=== PATIENT | female | born 1955 | race Caucasian/White ===

== ENCOUNTER 2018-06-05 09:56 | Inpatient (IN) | payer OTHER, SELFPAY ==
[2018-05-20 12:50] VITALS: BMI 29.9
[2018-06-05] VITALS (20 sets, daily range): BP systolic 86–119; BP diastolic 40–75; PULSE 64–90; RESP 10–16; TEMP 35.8–36.9; O2SAT 94–100; BMI 29.9
--- NOTE | 2018-06-05 06:00 | DI.RAD.S_ITS ---
PROCEDURE: XR HIP W PEL IF DONE RT 4V INDICATIONS: Postop right anterior total hip arthroplasty TECHNIQUE: 2 view(s) of the hip acquired. COMPARISON: [facility], HIPS BILATERAL, 06/18/2014, 13:33. FINDINGS: Intraoperative fluoroscopic images obtained. Bones: Patient is undergoing right hip arthroplasty, with hardware components in expected positions. The hip joint appears congruent. The visualized bony structures appear intact left hip arthroplasty components are also in place.. Soft tissues: Overlying postoperative changes are noted. No suspicious soft tissue densities. IMPRESSION: Expected appearance of hip arthroplasty components. Dictated by: Prachi Gary M.D. on 06/05/2018 at 16:01 Approved by: Prachi Gary M.D. on 06/05/2018 at 16:03
[2018-06-05] MEDS: ACETAMINOPHEN 325 MG TABLET 975 MG PO ×2 (11:01→20:43)
[2018-06-05] MEDS: CELECOXIB 200 MG CAPSULE PO (11:01)
[2018-06-05] MEDS: PREGABALIN 75 MG CAPSULE PO (11:03)
[2018-06-05] MEDS: LACTATED RINGERS 1,000 ML 42 ML IV ×2 (11:09→13:25)
[2018-06-05] MEDS: VANCOMYCIN 1,000 MG/200 ML FROZ.PIGGY 200 MG IV ×2 (11:17→23:20)
[2018-06-05] MEDS: CLINDAMYCIN 900 MG/50 ML PIGGYBACK 50 MG IV (12:23)
[2018-06-05] MEDS: TRANEXAMIC ACID 1,000 MG VIAL 1000 MG INJ ×2 (12:35→14:40)
--- NOTE | 2018-06-05 12:51 | SUR.OPER ---
Head on pillow. Supine on [facility] fracture table with bilateral legs secured in boots and in traction. Right arm across chest, secured with sheet and padded with foam, left arm secured on padded armboard, head on foam.
[2018-06-05] MEDS: BUPIVACAINE 0.25% W/ EPI 30 ML VIAL 60 ML INJ (13:31)
[2018-06-05] MEDS: BUPIVACAINE LIPOSOME 266 MG/20 ML VIAL INJ (13:31)
[2018-06-05] MEDS: POVIDONE-IODINE 15 ML, SODIUM CHLORIDE 0.9% 250 ML TOP (13:35)
[2018-06-05] MEDS: LIDOCAINE 1% W/EPI INJ 4 ML INJ (13:38)
--- NOTE | 2018-06-05 16:44 | PM.PREOP ---
Pre-operative Note Interval Note History & Physical reviewed/Exam performed by Physician: Yes Changes to H&P: No
--- NOTE | 2018-06-05 16:46 | P.OP_ITS ---
Operative Date/Time/Diagnoses Date of procedure: 06/05/18 Time of procedure: 16:44 Pre-op diagnosis: right hip osteoarthritis Post-op diagnosis: same Procedure & Clinicians Procedure: Right total hip arthroplasty anterior Same procedure as scheduled: Yes Indications: The patient has had progressively worsening right hip pain with radiographic changes consistent with arthritis. Non-operative management has failed and the patient has requested total hip replacement. The risks, benefits and alternatives to surgery were discussed with the patient prior to proceeding. Risks discussed included, but were not limited to, failure to relieve pain, leg length discrepancy, dislocation, stiffness, infection, nerve damage, deep venous thrombosis, pulmonary embolism, stroke, coma, heart attack, permanent paralysis and , as well as the potential need for eventual revision of the prosthetic. Surgeon: Silvina Root Food And Beverage Associate: Ricky Bucio Anesthesia Type: General and Spinal Operative Notes Findings: Severe right hip arthritis, tight hip, good stability Closure Type: primary Specimen(s): none sent Prosthetic devices, grafts, tissues, transplants, or devices: Root and Nephew R3 52, 36 x 52, size 4 standard offset anthology, 36+ 0 Applied: implant(s) Estimated Blood Loss (mL): 250 Blood products transfused: none Procedure in detail: The patient was brought to the operating room. Patient was carefully positioned in the supine position. Time-out was performed and antibiotics were given. Anesthesia was induced. She was positioned in the on the HANA table in order to allow hyperextension of the hip. the right lower extremities were prepped and draped in a standard sterile fashion. An anterior right hip incision was made 1 fingerbreadth lateral to the anterior superior iliac spine and extended distally towards the greater trochanter. Dissection was carried out through skin and subcutaneous tissues. The skin and subcutaneous tissues were carefully injected with Lidocaine with epi. Superficial hemostasis was achieved. The fascia over the tensor fascia jimena was defined and incised with a knife. Two Allis clamps were used to grasp the fascia. Tensor fascia jimena was retracted laterally. A gelpi retractor was placed. Dissection was carried out down along the neck. The circumflex vessels were carefully identified and cauterized with the Aqua Mantis. There was good visualization of the femoral neck. A Cobra was placed superior to the neck and the gluteus fibers were carefully stripped from that superior aspect of the capsule. A 2nd retractor was placed along the inferior aspect of the neck. The rectus insertion along the capsule was partially released. A 3rd retractor that was then gently placed over the rim of the acetabulum under the rectus. Capsule was carefully incised and released from the intertrochanteric line circumferentially superior to the mid sagittal line and inferiorly to the mid sagittal line until the lesser trochanter was palpable. She had a redundant and extremely tight capsule. A tag stitch was placed both in the superior and inferior limb of the capsular insertion. Along the acetabulum capsule was also released up to the mid sagittal 12:00 position. A portion of the labrum was resected. A saw was used to perform an osteotomy at the level of the intertrochanteric line and the junction of the superior femoral neck leaving approximately 1 finger breath of residual inferior neck above the lesser trochanter. A 2nd cut was made along the femoral neck at the base of the head and a napkin ring of neck was removed. Corkscrew was placed in the femoral head and the head was removed without difficulty. Retractors were then repositioned around the acetabulum. Residual labrum was resected and additional osteophytes were removed. A reamer that was 4 mm below the templated size was placed by hand in the acetabulum and it was reamed to centralize the acetabulum. It was then reamed up to 2 under the templated size and fluoroscopy was brought in to confirm the position of the reaming and depth of reaming. I reamed 1 under the anticipated size and touched the rim with line to line reaming. A trial cup was placed and noted that it was appropriately sized and fluoroscopy confirmed position and depth. The component was open and inserted without difficulty fluoroscopic imaging was used to confirm that the cup had been adequately seated and was well positioned. Neutral poly liner was placed after carefully reviewing the position of the cup and noting that it appeared to have acceptable anteversion and position with good coverage. The cup was tested and noted to be stable. Attention was then directed to the femur. The femur was gently hyperextended additional capsular release was performed as needed in order to allow adequate visualization of the proximal femur with elevation of the femur. her hip was quite tight. I specifically resected the capsule off of the femur posteriorly to the bald spot along the trochanter and specifically released that region as well as checking to make sure that inferiorly I had released to the lesser trochanter. A bone hook was used to gently mobilize the proximal femur. Patient was placed in a hyperextended slightly abducted position with maximum external rotation. the table hook was placed around the proximal femur and the femur was gently elevated. Box osteotome was used to check for any residual neck as well as sclerotic bone along the trochanter. [place] pepper was placed in the femur. Additional broaching was performed. Canal finder was used to deter mine the alignment of the canal and position. Size 1 broach was placed. The canal was then appropriately broached up to the templated size as long as there was adequate stability of the broach and serial advancement of the broach without excessive impingement. Specific attention was directed at avoiding varus attempting to direct the distal aspect of the broach more anteriorly and avoiding excessive anteversion. Trial reduction showed acceptable range of motion, good stability, no posterior impingement, adventist of leg length and appropriate lateral shuck. Patient was stable in external rotation to about 60? of hyper extension with external rotation of about 90?. I also flexed the hip and checked that there was no impingement anteriorly and there was good stability with flexion, abduction and internal rotation. Marcaine and Exparel were injected along the anterior capsule inferiorly and circumferentially around the capsule. the hip was dislocated and the broach was removed. I readjusted the retractors and then we placed the prosthesis. The stem was placed without difficulty. Repeat trial reduction and x-ray showed acceptable overall position, length, and no evidence of the femoral fracture. Final head was placed. Wound was meticulously irrigated with normal saline. The hip was reduced and additional Exparel and Marcaine were injected. The capsule was closed with interrupted nonabsorbable sutures. The fascia of the tensor was closed with interrupted and running Vicryl. No drain was placed. Any tensor fascia jimena muscle that appeared to be contused or injured which was a minimal amount was carefully resected. Capsule around the tensor was injected with Exparel and Marcaine. The skin was closed with barbed stitches for the subcutaneous tissue and skin. We also used surgical glue. The wound was dressed sterilely. Brief Betadine soak was also used and was meticulously irrigated with normal saline. Patient was transferred to recovery room in satisfactory condition. Complications: none Condition: stable Disposition: Acute Care Plan for aftercare: The patient will be maintained on a standard total hip replacement protocol with weight bearing as tolerated and anterior hip precautions. The patient will receive Aspirin and sequential compression devices for DVT prophylaxis. The patient will be discharged home when safe for the home environment.
[2018-06-05] MEDS: fentaNYL 100 MCG/2 ML INJ 50 MCG IV (16:50)
--- NOTE | 2018-06-05 17:00 | DI.RAD.S_ITS ---
PROCEDURE: XR HIP W PEL IF DONE RT 2V INDICATIONS: POST OP RIGHT ANTERIOR HIP TECHNIQUE: AP pelvis and lateral view of the right hip acquired. COMPARISON: [facility], CR, XR HIP W PEL IF DONE RT 4V, 06/05/2018, 12:39. [facility], MR, HIP WITHOUT CONTRAST, 05/02/2017, 11:59. FINDINGS: Bones: Patient is status post right hip arthroplasty, with hardware components in expected positions. The hip joint appears congruent. The visualized bony structures appear intact. The previously placed left hip arthroplasty hardware is noted. Soft tissues: Overlying postoperative changes are noted. No suspicious soft tissue densities. IMPRESSION: Normal postoperative examination. Dictated by: Hubert Adair M.D. on 06/05/2018 at 16:00 Approved by: Hubert Adair M.D. on 06/05/2018 at 16:01
--- NOTE | 2018-06-05 17:22 | SUR.PHASEI ---
Pain better, and
[2018-06-05] MEDS: LACTATED RINGERS 1,000 ML 125 ML IV (19:00)
--- NOTE | 2018-06-05 19:12 | PC.NURSE ---
Evening Shift/Admit Note- Patient arrived to room from PACU at 1735 via bed. Patient alert and oriented and able to make needs known to staff. Patient pleasent, calm, and cooperative with care. Admit questions completed, home medications reviewed, and physical assessment done. aquacell dressing to right hip C/D/I. Ice pack placed to right hip. Patient oriented to bed and bed controls, room, lights, menu, phone, and call soria/tv remote. Safety measures in place. Patient agrees to call for assistance. Bed alarm activated. Call soria and phone within reach. Will continue to monitor.
[2018-06-05] MEDS: OXYCODONE IR 5 MG TABLET PO (19:59)
[2018-06-05] MEDS: DOCUSATE 100 MG CAPSULE PO (20:43)
[2018-06-05] MEDS: ASPIRIN EC 81 MG TABLET PO (20:43)
[2018-06-05] MEDS: TIZANIDINE 4 MG TABLET 2 MG PO (22:32)
[2018-06-05] MEDS: LORazepam 1 MG TABLET PO (22:32)
[2018-06-06] VITALS (7 sets, daily range): BP systolic 96–125; BP diastolic 57–67; PULSE 68–81; RESP 16–18; TEMP 36.1–37.2; O2SAT 96–100
[2018-06-06] MEDS: OXYCODONE IR 5 MG TABLET PO (00:37)
[2018-06-06] MEDS: HYDROMORPHONE 0.5 MG INJ IV (02:37)
[2018-06-06 06:17] LABS: Hematocrit 32.6 % (36-46); Hemoglobin 10.9 g/dL (12.0-16.0)
[2018-06-06] MEDS: OXYCODONE/ACETAMINOPHEN 5/325 TABLET 2 TAB PO (06:18)
[2018-06-06] MEDS: LEVOTHYROXINE 50 MCG TABLET PO (06:21)
[2018-06-06] MEDS: DOCUSATE 100 MG CAPSULE PO ×2 (09:57→21:34)
[2018-06-06] MEDS: POLYETHYLENE GLYCOL 3350 17 GM POWD.PACK PO (09:57)
[2018-06-06] MEDS: LORATADINE 10 MG TABLET PO (09:57)
[2018-06-06] MEDS: DULOXETINE 30 MG CAPSULE 60 MG PO (09:57)
[2018-06-06] MEDS: ACETAMINOPHEN 325 MG TABLET 975 MG PO ×3 (09:58→21:35)
[2018-06-06] MEDS: ASPIRIN EC 81 MG TABLET PO ×2 (09:59→21:36)
[2018-06-06] MEDS: FLUTICASONE 120 SPRAY/16 GM SPRAY.SUSP NASAL (09:59)
[2018-06-06] MEDS: OXYCODONE IR 10 MG TABLET PO ×5 (10:03→22:55)
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
--- NOTE | 2018-06-06 14:20 | PM.PNPO.1 ---
Subjective Date Patient Seen: 06/06/18 Time Patient Seen: 07:30 Interval history: Patient is a 62 year old female who is POD #1 s/p right total hip arthroplasty. She has had difficulty with managing her pain overnight with her pain levels staying at about a 7/10. She was given oxycodone 5mg and Percocoet 5/325mg overnight which did not provide significant relief. She has been up and out of bed to the bathroom but has not evaluated by PT as of yet. She does note an area of decreased sensation lateral to the incision site. She denies any urinary issues. No nausea, vomiting, chest pain, shortness of breath or calf pain. Exam Vital Signs (past 8 hours): - 06/06/18 07:14 06/06/18 11:17 Temperature 97.2 F L 98.9 F Pulse Rate 69 68 Respiratory Rate 16 18 Blood Pressure 99/62 125/66 Pulse Oximetry 99 99 Oxygen Delivery Method CPAP Oxygen Flow Rate 0 Narrative Exam Narrative: Pleasant 62 year old female resting comfortably in bed in no apparent distress. Extrem Other: Aquacel dressing in place over right hip is clean, dry, and intact. Area of decreased sensation lateral to the incision that extends to midthigh, otherwise sensation intact. Able to dorisflex and plantar flex the foot. 2+ DP pulse. Objective Labs Result Diagrams: 06/06/18 05:57 Labs: Laboratory Results - last 24 hr 06/06/18 05:57 Hgb 10.9 L Hct 32.6 L Assessment & Plan Post-op Postoperative Procedures Operation Date: 06/05/18 12:00 Actual Procedures Side Surgeon p Total Hip Arthroplasty/Anterior Approach Right Silvina Root MD Postoperative day: 1 Postoperative status: doing well Postoperative plan narrative: Continue to ambulate as tolerated and mobilize with PT. Pain regimen changed to oxycodone 10mg for moderate pain and 15mg for severe pain[place] Due to her current mobility and her pain control will likely need another night inpatient.
--- NOTE | 2018-06-06 14:24 | PT.IPTN ---
Current Diagnoses Unilateral primary osteoarthritis, right hip (06/05/18) Surgery Performed Operation Date: 06/05/18 12:00 Actual Procedures p Total Hip Arthroplasty/Anterior Approach(Right) - Silvina Root MD Physical Therapy Treatment Note M2 PT-IP Current Condition Start: 06/06/18 10:07 Freq: NEEDED Status: Active Protocol: Document 06/06/18 11:47 DLM (Rec: 06/06/18 12:07 DLM [id number]) Physical Therapy Current Condition Current Condition Evaluation Date 06/06/18 Treatment Diagnosis right DELROY, anterior approach, gait impairment Onset Date 06/05/18 Precautions Anterior Hip Precautions No Hip Extension No Hip External Rotation Weight Bearing Status Weight Bearing Status Weight Bear as Tolerated M3 PT-IP Subjective Start: 06/06/18 10:07 Freq: NEEDED Status: Active Protocol: Document 06/06/18 14:24 DLM (Rec: 06/06/18 14:44 DLM [id number]) Subjective Physical Therapy Visit Type Type Treatment Note Visit Start Time 14:57 Visit Stop Time 14:24 Total Visit Minutes 27 Number of INVESTIGATION MANAGER Visits 0 Physical Therapy Visit Comments Patient Comments Her daughter is driving into town to help her at discharge Therapy Pain Assessment Pain When Pain Assessed After Treatment Pain Present Pain Present Pain Reported Location Right Anterior Hip Intensity 5 Scale Used Numeric (1 - 10) Description Aching Pain Behaviors Guarding Pain Management Techniques Apply Cold Re-positioning Timing of Activity with Medications M4 PT-IP Mobility and Gait Start: 06/06/18 10:07 Freq: NEEDED Status: Active Protocol: Document 06/06/18 14:24 DLM (Rec: 06/06/18 14:44 DL [id number]) PT-Bed Mobility Assessment Supine to Sit Supine to Sit Independent Sit to Supine Sit to Supine Standby Assistance Scooting Scooting to Edge of Bed Independent PT-Transfer Assessment Sit to and From Stand Sit to and from Stand Standby Assistance Use of Upper Extremities Equipment Transfer Assistive Device Gait Belt Front Wheeled Walker Transfers Transfer Destination Bed Transfer Technique Stand Step Pivot Transfer Ability Level of Assist Standby Assistance Use of Upper Extremities Gait Assessment Gait Gait Assistance Required: Standby Assistance Distance (Feet) 150 Able to Maintain Weight Bearing Status Yes During Gait Assistive Devices Assistive Device Gait Belt Front Wheeled Walker Gait Deviations General Gait Pattern Antalgic Decreased Stride Length Factors Limiting Gait Function Factors Limiting Gait Function Decreased Activity Tolerance Decreased Strength Pain Comments Gait Comments Verbal cues for safe use of FWW PT-Balance Assessment Sitting Balance and Reactions Static Sitting Balance Ability Normal Dynamic Sitting Balance Ability Normal Standing Balance and Reactions Static Standing Balance Ability Good Dynamic Standing Balance Ability Good Device Used FWW M5 PT-IP Objective Assessments Start: 06/06/18 10:07 Freq: NEEDED Status: Active Protocol: Document 06/06/18 14:24 DLM (Rec: 06/06/18 14:44 DL [id number]) Orientation Orientation/Cognition Level of Alertness Alert Orientation Name Age Birthday Month Date Year Day of Week Place Situation Language Function Ability No Deficits Noted Safety Awareness Understands Safety Issues Memory Description No Deficits Noted M6 PT-IP Treatment Start: 06/06/18 10:07 Freq: NEEDED Status: Active Protocol: Document 06/06/18 14:24 DLM (Rec: 06/06/18 14:44 DLM [id number]) Physical Therapy Treatment Exercises Exercises Ankle Pumps Gluteal Sets Quad Sets Heel Slides Education Education Provided Precautions Weight Bearing Status Safety Equipment Issued Equipment Type and Company she has her FWW from home in her room M7 PT-IP Assessment and Plan Start: 06/06/18 10:07 Freq: NEEDED Status: Active Protocol: Document 06/06/18 14:24 DLM (Rec: 06/06/18 14:44 DL [id number]) PT Summary Assessment and Plan Summary Impairments Pain ROM Strength Balance Bed Mobility Transfers Gait Activity Tolerance Progress Towards Goals Progressing Toward Goals Assessment Summary Patient tolerated gait well in the wright with fWW. Pt has been up to recliner and toilet today. She is progressing well. She will look at [facility] to get organized for possible discharge tomorrow. Anticipate she will be safe for discharge home tomorrow. Goals Bed Mobility Goal Independent Transfer Goal Independent Front Wheeled Walker Gait Goal Independent Front Wheel Walker Gait Distance 200 feet Other Goals Up and down one step with fWW and SBA Days to Meet Goals 2 Frequency of Treatment Frequency Of Treatment Twice a Day Treatment Plan Physical Therapy Treatment Plan Bed Mobility Training Transfer Training Gait Training Therapeutic Exercise Balance Retraining Discharge Planning Hot or Cold Pack Recommendations To Nursing Amount of Assist Needed Standby Assistance Discharge Recommendations PT Discharge Recommendations Home with Assistance Outpatient PT
--- NOTE | 2018-06-06 14:56 | PC.NURSE ---
SHIFT SUMMARY PATIENT HAD A GREAT SHIFT. PO OXYCODONE CONTROLLING PAIN WELL. GOOD MOBILITY AND AMBULATION IN HALLS W/ PHYSICAL THERAPY. PAIN COMES DOWN TO 3/10 AFTER MEDICATION. CMS INTACT, AQUACEL CDI. EATING, DRINKING, URINATING WELL. MIRALAX AND STOOL SOFTENER GIVEN THIS AM. USES CALL LIGHT APPROPRIATELY.
[2018-06-06] MEDS: OXYCODONE IR 5 MG TABLET 15 MG PO (16:40)
--- NOTE | 2018-06-06 16:42 | PC.NURSE ---
Pt reports surgical hip pain 08/18. Requests additional 5 mg oxycodone to equal 15 mg (previously medicated with 10 mg). Discussed action of vistaril with this patient and offered this med which pt refused stating does not want the sedating effect. Administered tylenol as ordered. Will continue to monitor.
--- NOTE | 2018-06-06 17:51 | CM.DANOTE ---
Discharge Planning/Care Management DCP: assessment: Case received, discussed in Team Rounds and now PT notes for today are reviewed. Pt is a 62 year old female who admitted for a planned R DELROY/anterior: Surgeon: Dr. Josh Root. Payer: [facility] Pt's pre-op plan was identified as home with and her daughter Carmela coming to help out . PT Becca had 2 sessions with pt today and is supportive of this plan. DCP team will follow prn: at this point anticipating home with family support as noted and OUTPT PT. CM Discharge Assessment Start: 06/06/18 17:50 Freq: Status: Active Protocol: Document 06/06/18 17:50 ITV (Rec: 06/06/18 17:51 ITV [id number]) Discharge Planning Assessment Advance Directives? No: Information mailed to patient History Provided By Medical Record Prior Living Arrangements House Household Members spouse Review Status In Process Next Review Type Continued Stay Review Pre-Anesthesia Assessment Start: 05/20/18 12:50 Freq: Status: Complete Protocol: Document 05/20/18 12:50 CAB (Rec: 05/20/18 13:53 CAB [id number]) Pre-Anesthesia Assessment Patient Also Known As Cervantes (AKA) Patient Information Reviewed Via Phone Assessment Assessment Completed With Patient Diagnostic Results BMP/CMP CBC EKG Urinalysis Other Comment A1c Primary Care Provider Mariola Foster Seen Specialist in Last 12 Months Yes Specialist Seen ENT Orthopedist Other Comment Psych Primary Language Bulgarian Tanner Rotary Drum Continuous Process Required No Height 165.1 cm Weight 81.647 kg Body Mass Index (BMI) 29.9 Hearing Ability Hard of Hearing Visual Assist Glasses Dentition Type Teeth, Natural Present Barriers to Learning Emotional Other Aids No Hx Anesthesia Reactions No Hx Family Anesthesia Reaction Yes: Sister had hallucinations , psychosis Hx Malignant Hyperthermia No Hx Blood Transfusions No Anesthesia Review Requested No Hris Analyst No alcohol intake former Alcohol Intake Frequency Other: Quit age 26 r/t alcohol abuse Smoking Status Former smoker Tobacco type cigarettes smokeless tobacco how long ago did patient quit smoking Quit 2008, vaped until 2013 Substance Use Type marijuana Comment Pt advised not to smoke marijuana 24 hours prior to surgery Pain Present Pain Reported Musculoskeletal Symptoms Abnormal Gait Back Pain Difficulty Walking Joint Pain Muscle Cramps Muscle Spasms Muscle Weakness Neck Pain History of Falling (Recent or History of No ) Patient is completely paralyzed or No completely immobile Prosthesis or Orthotic Device Cane Mental Status Oriented to own ability Is patient on oxygen? No Does patient have FRANK/SOB No Hx Sleep Apnea Yes CPAP/BIPAP use prescribed and used routinely Will Bring CPAP/BIPAP DOS Yes Currently Taking a Beta [place] No Can You Climb a Flight of Stairs Without No: r/t pain SOB Hx Chest Pain Yes: Occasional, stress test @ 2017, negative for ischemia Hx Syncope or Dizziness Yes: Occasional Anti-Coagulant Therapy No Has a In Service Education Teacher No Cardiac Testing No Hx Pacemaker/ICD No Pacemaker Rep Required? No Cardiac Clearance Received Not Applicable Diet Type At Home Regular Gluten Free Other dysphagia No Comment Plant paradox diet Bladder Pattern Incontinent, Stress Urinary Catheter Present No Hx Urinary Self Catheterization No Diabetes No HgbA1C 5.6 Date 05/12/18 Patient No Lactating No Hx Drug Resistant Organism No Presence of External or Internal Medical Yes: CPAP Devices Have you traveled outside the [facility] in the last 30 days? Marital Status Lives With spouse Prior Living Arrangements House Support System Child/Children Spouse Does the Patient Have Assistance After Yes Surgery Patient Discharge Plan Description Return Home Comment Pt lives on [address], pt not advised on length of stay per surgeon's office Feels Safe in Current Environment Yes Been Physically Hurt or Threatened By a No Person in Current Environment Do you have thoughts of harming yourself None or others? Are you currently considering suicide? No Do you have a plan to hurt yourself or No Plan others? Do You Have Any Spiritual Beliefs That No May Affect Your HC Choices? Do You Have Any Cultural Practices That No May Affect Your HC Choices? Spiritual Referral None Who Can We Speak to About Patient's Care Family, friends Identifying Code for Release of Patient Declines to issue Information Health Care Proxy/Next of Kin Leonard () Carmela ( daughter) Health Care Proxy Phone Number Leonard: [phone] [place]: [phone] Emergency Contact Name Leonard () Carmela ( daughter) Emergency Contact Phone Number Leonard: [phone] [place]: [phone] Advance Directives? No: Information mailed to patient Requested Patient Bring Advanced Yes Directives DOS PAC Instructions Bring CPAP/BIPAP Do not shave/clip surgical site Durable medical equipment Medications to take/avoid Nasal antibiotic No ETOH/petroleum product on skin DOS NPO Post-op transportation Pre-surgical wash Sturdy shoes/comfortable clothes Do not bring valuables and remove jewelry
--- NOTE | 2018-06-06 19:51 | PC.NURSE ---
Pt complains of pain 6/10, pain relieved w/ 15mg of oxycodone q3 hrs with acetaminophen as needed. Lung sounds clear bilaterally. VSS. Dr. Root in to see patient and she will be discharging tomorrow. Pt continues to be instructed on how to use IS, and on doing foot waves. Pt. is following teaching.
[2018-06-06] MEDS: TIZANIDINE 4 MG TABLET 2 MG PO (21:35)
[2018-06-06] MEDS: LORazepam 1 MG TABLET PO (21:35)
[2018-06-06] MEDS: SODIUM CHLORIDE 0.9% FLUSH 10 ML IV (21:36)
[2018-06-07] MEDS: OXYCODONE IR 10 MG TABLET PO ×2 (02:13→05:53)
[2018-06-07 05:00] VITALS: BP 106/53; PULSE 72; RESP 16; TEMP 36.6; O2SAT 98
[2018-06-07] MEDS: LEVOTHYROXINE 50 MCG TABLET PO (05:53)
[2018-06-07] MEDS: OXYCODONE IR 5 MG TABLET 15 MG PO ×3 (06:18→13:04)
[2018-06-07] MEDS: ACETAMINOPHEN 325 MG TABLET 975 MG PO ×2 (07:01→13:41)
[2018-06-07] MEDS: hydrOXYzine pamoate 25 MG CAPSULE PO (07:01)
[2018-06-07 08:00] VITALS: BP 103/55; PULSE 67; RESP 16; TEMP 36.4; O2SAT 100
[2018-06-07 09:14] VITALS: PULSE 77; RESP 17; O2SAT 99
[2018-06-07] MEDS: DOCUSATE 100 MG CAPSULE PO (09:40)
[2018-06-07] MEDS: DULOXETINE 30 MG CAPSULE 60 MG PO (09:40)
[2018-06-07] MEDS: ASPIRIN EC 81 MG TABLET PO (09:41)
[2018-06-07] MEDS: FLUTICASONE 120 SPRAY/16 GM SPRAY.SUSP NASAL (09:41)
[2018-06-07] MEDS: LORATADINE 10 MG TABLET PO (09:41)
--- NOTE | 2018-06-07 10:35 | PT.IPTN ---
Current Diagnoses Unilateral primary osteoarthritis, right hip (06/05/18) Surgery Performed Operation Date: 06/05/18 12:00 Actual Procedures p Total Hip Arthroplasty/Anterior Approach(Right) - Silvina Root MD Physical Therapy Treatment Note M2 PT-IP Current Condition Start: 06/06/18 10:07 Freq: NEEDED Status: Active Protocol: Document 06/06/18 11:47 DLM (Rec: 06/06/18 12:07 DLM [id number]) Physical Therapy Current Condition Current Condition Evaluation Date 06/06/18 Treatment Diagnosis right DELROY, anterior approach, gait impairment Onset Date 06/05/18 Precautions Anterior Hip Precautions No Hip Extension No Hip External Rotation Weight Bearing Status Weight Bearing Status Weight Bear as Tolerated M3 PT-IP Subjective Start: 06/06/18 10:07 Freq: NEEDED Status: Active Protocol: Document 06/07/18 10:35 GGD (Rec: 06/07/18 12:11 GGD [email or web address]) Subjective Physical Therapy Visit Type Type Treatment Note Visit Start Time 10:05 Visit Stop Time 10:35 Total Visit Minutes 30 Number of PLANT OPERATIONS WORKER Visits 1 Physical Therapy Visit Comments Patient Comments Pt states she having increase in pain. Therapy Pain Assessment Pain When Pain Assessed At Rest Pain Present Pain Present Pain Reported Location Right Anterior Hip Intensity 5 Scale Used Numeric (1 - 10) Description Aching Pain Behaviors Guarding Pain Management Techniques Re-positioning Timing of Activity with Medications M4 PT-IP Mobility and Gait Start: 06/06/18 10:07 Freq: NEEDED Status: Active Protocol: Document 06/07/18 10:35 GGD (Rec: 06/07/18 12:11 GGD [id number]) PT-Bed Mobility Assessment Supine to Sit Supine to Sit Contact Guard Assistance Scooting Scooting to Edge of Bed Independent PT-Transfer Assessment Sit to and From Stand Sit to and from Stand Standby Assistance Use of Upper Extremities Equipment Transfer Assistive Device Gait Belt Front Wheeled Walker Transfers Transfer Destination Chair Wheelchair Transfer Technique Stand Step Pivot Transfer Ability Level of Assist Standby Assistance Use of Upper Extremities Gait Assessment Gait Gait Assistance Required: Standby Assistance Distance (Feet) 185 Able to Maintain Weight Bearing Status Yes During Gait Assistive Devices Assistive Device Gait Belt Front Wheeled Walker Gait Deviations General Gait Pattern Antalgic Decreased Stride Length Factors Limiting Gait Function Factors Limiting Gait Function Decreased Activity Tolerance Decreased Strength Pain Stair Climbing Assessment Evaluation Level of Assist On Stairs Contact Guard Assistance Devices Stair Climbing Assistive Devices Front Wheel Walker Technique/Endurance Stair Climbing Direction Ascend and Descend Stair Climbing Technique Step to Step Number of Steps Climbed 1 Query Text: Stair Climbing Set # Repetitions (reps) 1 Comments Stair Climbing Comments Pt need min cues. M5 PT-IP Objective Assessments Start: 06/06/18 10:07 Freq: NEEDED Status: Active Protocol: Document 06/06/18 14:24 DLM (Rec: 06/06/18 14:44 DLM [id number]) Orientation Orientation/Cognition Level of Alertness Alert Orientation Name Age Birthday Month Date Year Day of Week Place Situation Language Function Ability No Deficits Noted Safety Awareness Understands Safety Issues Memory Description No Deficits Noted M6 PT-IP Treatment Start: 06/06/18 10:07 Freq: NEEDED Status: Active Protocol: Document 06/07/18 10:35 GGD (Rec: 06/07/18 12:11 GGD [id number]) Physical Therapy Treatment Exercises Exercises Ankle Pumps Gluteal Sets Quad Sets Heel Slides Education Education Provided Precautions Weight Bearing Status Safety M7 PT-IP Assessment and Plan Start: 06/06/18 10:07 Freq: NEEDED Status: Active Protocol: Document 06/07/18 10:35 GGD (Rec: 06/07/18 12:11 GGD [email or web address]) PT Summary Assessment and Plan Summary Assessment Summary Pt progressing with mobility. She did have c/o increase in pain, but didn't limit her mobility. She was safe and stable with stair mobility. She is safe for home D/C when medically stable. Frequency of Treatment Frequency Of Treatment Twice a Day Treatment Plan Physical Therapy Treatment Plan Bed Mobility Training Transfer Training Gait Training Therapeutic Exercise Balance Retraining Discharge Planning Hot or Cold Pack Recommendations To Nursing Amount of Assist Needed Standby Assistance Discharge Recommendations PT Discharge Recommendations Home with Assistance Outpatient PT
--- NOTE | 2018-06-07 11:05 | PM.DS.1 ---
History of Present Illness Date Patient Seen: 06/07/18 Time Patient Seen: 11:05 Chief complaint: [id number] Narrative: Pain is mild to moderate right hip. she likely has right-sided abdominal muscle strain which occurred the day before surgery. This makes it difficult and painful to move. She has required some additional pain med after surgery due to the right-sided pain. She has no shortness of breath or chest pain. No fever chills. No nausea vomiting. Her 's home to assist her. After her left total hip arthroplasty she was taking 15 mg oxycodone to help manage her pain. Discharge Providers Date of admission: 06/05/18 09:56 Discharge Date: 06/07/18 Primary care physician: Dillon Cha MD Consults: 06/05/18 06:00 Consult to Anesthesiology Routine Comment: Consulting Provider: Anesthesiologist Reason for consultation: Regional block for post operative pain control 06/05/18 10:56 Consult to Respiratory Therapy Evaluate & Treat Comment: Physician Instructions: Evaluate and treat 06/05/18 18:42 Consult to Discharge Planning Routine Comment: Consult to Physical Therapy Evaluate & Treat Comment: Physician Instructions: post op DELROY protocol Consult to Respiratory Therapy Evaluate & Treat Comment: Physician Instructions: Evaluate and treat Discharge provider: Ricky Bucio PA-C Summary Discharge Diagnosis: Status post right total hip arthroplasty, anterior Hospital Course: Patient failed outpatient conservative treatment. Patient admitted for right total hip arthroplasty, anterior approach. Informed consent reviewed and signed. Patient taken operating room underwent right total hip arthroplasty back in her room recovering well as in stable condition. patient's is home to assist her. She is doing well with physical therapy and will be discharged home in stable condition. Status at Discharge Cognitive/behavioral status at discharge: oriented Functional status at discharge: uses cane/walker Overall status at discharge: patient is progressing back to baseline Time Spent with Patient Less than 30 minutes Exam Vital Signs (past 8 hours): - 06/07/18 05:00 06/07/18 08:00 06/07/18 09:14 Temperature 97.9 F 97.5 F L Pulse Rate 72 67 77 Respiratory Rate 16 16 17 Blood Pressure 106/53 L 103/55 L Pulse Oximetry 98 100 99 Oxygen Delivery Method Room Air Oxygen Flow Rate 0 Narrative Exam Narrative: Pleasant 62-year-old female resting comfortably in bedside chair in no apparent distress. Right hip dressing is clean, dry and intact. There is some mild swelling and ecchymosis about the right hip. motor function is intact distal right lower extremity. Right lower extremity is warm and dry. sensation grossly intact to light touch distal right lower extremity. Objective Labs Result Diagrams: 06/06/18 05:57 Discharge Plan Discharge Plan Patient Disposition: Home Discharge comment: DC today Discharge Med Rec/Prescriptions Prescriptions: New acetaminophen 325 mg Tablet 975 mg PO TID Qty: 90 RF: 0 aspirin 81 mg Tablet,Delayed Release (Dr/Ec) 81 mg PO BID Qty: 60 RF: 0 ibuprofen 400 mg Tablet 800 mg PO Q8HR PRN (Reason: Inflammation) Qty: 60 RF: 0 oxycodone 5 mg Tablet 15 mg PO Q3HR PRN (Reason: Pain, Severe (7-10)) Qty: 120 RF: 0 Continued duloxetine 40 MG capsule,delayed release(DR/EC) 60 mg PO QAM Qty: 30 RF: 0 levothyroxine 50 MCG tablet 0.05 mg PO QAM Qty: 90 RF: 3 fluticasone propionate 16 GM spray,suspension 2 spray Intranasal QDAY Qty: 16 RF: 2 [COQ10] 1 tab PO DAILY Qty: 0 RF: 0 zolpidem 5 MG tablet 2.5 mg PO BEDTIME PRN (Reason: Sleep) Qty: 0 RF: 0 tizanidine 2 mg Tablet 2 mg PO BEDTIME RF: 0 fexofenadine [Willa Allergy] 180 mg Tablet 180 mg PO DAILY RF: 0 lorazepam 1 mg Tablet 1 mg PO BEDTIME RF: 0 dextroamphetamine 15 mg Tablet 15 mg PO TID RF: 0 rizatriptan 10 MG tablet,disintegrating 10 mg PO QDAYP PRN (Reason: migraines) RF: 0 Discontinued oxycodone-acetaminophen [Percocet] 5 MG/325 MG tablet 1 tab PO PRN PRN (Reason: pain) RF: 0 Follow up/Referrals: Dillon Cha MD [Primary Care Provider] - Provider Discharge Instructions Diet: Diet as Tolerated Activity: Per [facility] Cold/Heat Therapy: per [facility] Other treatments: per [facility] Skin/Wound/Dressing Care Report to your healthcare provider any signs of infection, such as:: chills, fever, increased pain, unusual drainage and unusual redness Dressing: keep clean and dry Discharge Data Primary Care Provider: Dillon Cha Attending Provider: Silvina Root Admit Date/Time: 06/05/18 09:56
[2018-06-07] MEDS: IBUPROFEN 400 MG TABLET 800 MG PO (13:37)
== END 2018-06-07 15:30 | disposition home or self-care (01) | DRG 470 ==
PROVIDERS: Admitting Provider Orthopaedic Surgery; PCP Family Medicine; Visit Provider Orthopaedic Surgery
PROC: 0SR902Z Replacement of Right Hip Joint with Metal on Polyethylene Synthetic Substitute, Open Approach (ICD-10-PCS; CPT 27130; principal; 2018-06-05 12:00)
DX: M16.11 Unilateral primary osteoarthritis, right hip (principal); Z96.642 Presence of left artificial hip joint; G47.33 Obstructive sleep apnea (adult) (pediatric); E03.9 Hypothyroidism, unspecified; M79.7 Fibromyalgia; F32.9 Major depressive disorder, single episode, unspecified; J45.909 Unspecified asthma, uncomplicated; F90.9 Attention-deficit hyperactivity disorder, unspecified type; I34.1 Nonrheumatic mitral (valve) prolapse; R53.82 Chronic fatigue, unspecified
CPT/HCPCS: 36415; 73502; 73503; 85014; 85018; 94762; 97110; 97116; 97162; 97530; C1776; C9290; J1100; J1170; J2250; J2274; J2405; J2704; J3010; J3370

== ENCOUNTER → 2018-12-02 15:57 | Outpatient (CLI) | payer OTHER, SELFPAY ==
[2018-06-05 17:59] VITALS: BMI 29.9
--- NOTE | 2018-12-02 | DI.CT.S_ITS ---
PROCEDURE: CT SINUS SCREEN WO CON INDICATIONS: CHRONIC SINUSITIS TECHNIQUE: Noncontrast 3.0 mm axial images acquired from the frontal sinuses to the mid-sella, with coronal and sagittal reformats. For radiation dose reduction, the following was used: automated exposure control, adjustment of mA and/or kV according to patient size. COMPARISON: None. FINDINGS: Image quality: Excellent. Maxillary Sinuses: Bilateral antrectomy. No bony remodeling or destruction. There is a air-fluid level in the right maxillary sinus. Ethmoid Air Cells: Postsurgical changes are noted. No bony remodeling or destruction. Sinuses are clear. Sphenoid Sinuses: No bony remodeling or destruction. Sinuses are clear. Frontal Sinuses: No bony remodeling or destruction. Sinuses are clear. Ostiomeatal Complexes: Ostiomeatal complexes are resected. No Jayde cells. Miscellaneous: Visualized intra-orbital contents are normal. No hanna bullosa or paradoxical turbinate curvature. No nasal septal deviation. IMPRESSION: 1. An air fluid level in the right maxillary sinus; otherwise clear paranasal sinuses. 2. Postsurgical changes. Dictated by: Karen Pedraza M.D. on 12/02/2018 at 17:15 Approved by: Karen Pedraza M.D. on 12/02/2018 at 17:19
== END ==
PROVIDERS: PCP Nurse Practitioner Family; Visit Provider Otolaryngology Facial Plastic Surgery
DX: J32.8 Other chronic sinusitis (principal)
CPT/HCPCS: 70486

== ENCOUNTER → 2018-12-15 11:53 | Outpatient (CLI) | payer OTHER, SELFPAY ==
[2018-06-05 17:59] VITALS: BMI 29.9
--- NOTE | 2018-12-15 | DI.MG.S_ITS ---
BILATERAL DIGITAL SCREENING MAMMOGRAM 3D/2D WITH CAD: 12/15/2018 CLINICAL: Routine screening. Family history of breast cancer. Comparison is made to exams dated: 05/27/2015 mammogram, 01/28/2014 mammogram - [facility], and 03/28/2012 mammogram - [facility]. The tissue of both breasts is heterogeneously dense. This may lower the sensitivity of mammography. Current study was also evaluated with a Computer Aided Detection (CAD) system. There are biopsy clips in the left breast. No significant masses, calcifications, or other findings are seen in either breast. There has been no significant interval change. IMPRESSION: NEGATIVE There is no mammographic evidence of malignancy. A 1 year screening mammogram is recommended. This exam was interpreted at Station ID: [id number]. NOTE: For mammograms, a report in lay terms will be sent to the patient. Approximately 15% of breast malignancies will not be visualized mammographically. In the management of a palpable breast mass, a negative mammogram must not discourage biopsy of a clinically suspicious lesion. Electronically Signed By: Amarjit yan/joseph:12/15/2018 12:30:05 letter sent: Normal Exam ACR BI-RADS Category 1: Negative 3341F
== END ==
PROVIDERS: PCP Nurse Practitioner Family; Visit Provider Nurse Practitioner Family
DX: Z12.31 Encounter for screening mammogram for malignant neoplasm of breast (principal); Z80.3 Family history of malignant neoplasm of breast
CPT/HCPCS: 77063; 77067

== ENCOUNTER → 2020-05-17 12:06 | Outpatient (CLI) | payer MEDICARE, SELFPAY ==
[2020-03-25 16:08] VITALS: BMI 29.9
--- NOTE | 2020-05-17 12:07 | DI.MG.S_ITS ---
BILATERAL DIGITAL SCREENING MAMMOGRAM 3D/2D WITH CAD: 05/17/2020 CLINICAL: Routine screening. Family history of breast cancer. Comparison is made to exams dated: 12/15/2018 mammogram, 05/27/2015 mammogram, and 01/28/2014 mammogram - [facility]. The tissue of both breasts is heterogeneously dense. This may lower the sensitivity of mammography. Current study was also evaluated with a Computer Aided Detection (CAD) system. There are biopsy clips in the left breast. No significant masses, calcifications, or other findings are seen in either breast. There has been no significant interval change. IMPRESSION: NEGATIVE There is no mammographic evidence of malignancy. A 1 year screening mammogram is recommended. This exam was interpreted at Station ID: [id number]. NOTE: For mammograms, a report in lay terms will be sent to the patient. Approximately 15% of breast malignancies will not be visualized mammographically. In the management of a palpable breast mass, a negative mammogram must not discourage biopsy of a clinically suspicious lesion. Electronically Signed By: Houston renteria/joseph:05/17/2020 13:04:31 letter sent: Normal Exam ACR BI-RADS Category 1: Negative [id number]
== END ==
PROVIDERS: PCP Nurse Practitioner Family; Referring Provider Nurse Practitioner Family; Visit Provider Nurse Practitioner Family
DX: Z12.31 Encounter for screening mammogram for malignant neoplasm of breast (principal); Z80.3 Family history of malignant neoplasm of breast; Z78.0 Asymptomatic menopausal state; E07.9 Disorder of thyroid, unspecified; E55.9 Vitamin D deficiency, unspecified; Z82.62 Family history of osteoporosis; Z87.891 Personal history of nicotine dependence
CPT/HCPCS: 77063; 77067; 77080

== ENCOUNTER → 2020-10-24 17:02 | Outpatient (CLI) | payer MEDICARE, SELFPAY ==
[2020-03-25 16:08] VITALS: BMI 29.9
--- NOTE | 2020-10-24 17:04 | DI.MRI.S_ITS ---
PROCEDURE: MR KNEE LT WO CON INDICATIONS: OTHER SPECIFIED DISORDERS OF BONE LOWER LEG TECHNIQUE: Noncontrast sagittal PD fast spin echo and T2 fast spin echo with fat saturation, sagittal 3-D FLASH with fat saturation; coronal T1 spin echo and PD fast spin echo with fat saturation, and axial PD fast spin echo with fat saturation through the knee. COMPARISON: None. FINDINGS: Image quality: Excellent. Menisci: Radial tearing of the posterior horn medial meniscus at the meniscal root ligament insertion site. Lateral meniscus is intact. Cruciate ligaments: The anterior and posterior cruciate ligaments appear intact. Medial structures: The medial collateral ligament appears intact. Visualized portions of the pes anserinus tendons appear normal. There is mild T2 signal elevation within the semimembranosus at the tibial insertion site. No abnormal bursal fluid. Lateral structures: The lateral collateral ligament demonstrates mild T2 signal elevation at the femoral origin. The long and short heads of the biceps femoris tendon appear intact. The popliteus tendon appears normal. Iliotibial band appears normal. Anterior structures: The quadriceps and patellar tendons appear intact. Patellar alignment is normal. No femoral trochlear dysplasia or ventral trochlear prominence. No edema in the infrapatellar fat pad. Bones and cartilage: No bone marrow contusions or fractures. 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 Mild tricompartmental periarticular osteophyte formation. Mild articular cartilage loss diffusely overlies the weight-bearing aspects of the medial and lateral compartments. Moderate articular cartilage loss diffusely overlies the medial and lateral patellar facets. Joint space: There is a small knee joint effusion, small ganglion cyst along the popliteus, and a trace Frausto's cyst. Normal appearing synovial plicae are incidentally noted. IMPRESSION: 1. Tricompartmental osteoarthritis with associated articular cartilage loss. 2. Low-grade cartilaginous lesion within the distal femur as described above. 3. Knee joint effusion, Frausto's cyst, and ganglion cyst along the popliteus. 4. Low-grade partial thickness lateral collateral ligament tear. 5. Medial meniscal tear. 6. Insertional tendinitis of the semimembranosus. Dictated by: Jose Guadalupe Gutierrez M.D. on 10/25/2020 at 8:23 Approved by: Jose Guadalupe Gutierrez M.D. on 10/25/2020 at 8:27
== END ==
PROVIDERS: PCP Nurse Practitioner Family; Referring Provider Family Medicine; Visit Provider Family Medicine
DX: M89.8X6 Other specified disorders of bone, lower leg (principal); S83.242A Other tear of medial meniscus, current injury, left knee, initial encounter; S83.422A Sprain of lateral collateral ligament of left knee, initial encounter; M17.12 Unilateral primary osteoarthritis, left knee; M25.462 Effusion, left knee; M71.22 Synovial cyst of popliteal space [Baker], left knee; M67.462 Ganglion, left knee
CPT/HCPCS: 73721

== ENCOUNTER → 2021-04-04 12:10 | Outpatient (CLI) | payer MEDICARE, SELFPAY ==
[2020-03-25 16:08] VITALS: BMI 29.9
--- NOTE | 2021-04-04 12:13 | DI.RAD.S_ITS ---
PROCEDURE: XR HAND RT MIN 3V INDICATIONS: fall TECHNIQUE: 3 views of the hand(s) acquired. COMPARISON: None. FINDINGS: Bones: Diffuse osteopenia. No fractures or dislocations. Carpal bones are normally aligned. No suspicious bony lesions. Moderate background polyarticular degenerative changes seen predominantly in the distal interphalangeal joints of the 2nd through 5th fingers as well as the thumb interphalangeal and metacarpophalangeal joints of the thumb through 3rd fingers. Moderate degenerative changes of the 1st carpometacarpal joint. Soft tissues: No suspicious soft tissue calcifications. IMPRESSION: Right hand without acute fracture or dislocation. If there is persistent clinical concern for occult fracture given adequate mechanism of injury, consider repeat imaging in 10-14 days. Dictated by: Amarjit Olmedo M.D. on 04/04/2021 at 12:28 Approved by: Amarjit Olmedo M.D. on 04/04/2021 at 12:30
== END ==
PROVIDERS: PCP Nurse Practitioner Family; Referring Provider Student in an Organized Health Care Education/Training Program; Visit Provider Student in an Organized Health Care Education/Training Program
DX: M79.641 Pain in right hand (principal)
CPT/HCPCS: 73130

== ENCOUNTER → 2022-05-31 14:59 | Outpatient (CLI) | payer MEDICARE, SELFPAY ==
[2020-03-25 16:08] VITALS: BMI 29.9
--- NOTE | 2022-05-31 | DI.MG.S_ITS ---
BILATERAL DIGITAL SCREENING MAMMOGRAM 3D/2D WITH CAD: 05/31/2022 CLINICAL: Routine screening. Family history of breast cancer. Comparison is made to exams dated: 12/15/2018 mammogram, 05/27/2015 mammogram, and 01/28/2014 mammogram - [facility]. There are scattered areas of fibroglandular density in both breasts (category b / 25%-50% glandular tissue). Current study was also evaluated with a Computer Aided Detection (CAD) system. There are biopsy clips in the left breast. No significant masses, calcifications, or other findings are seen in either breast. There has been no significant interval change. IMPRESSION: NEGATIVE There is no mammographic evidence of malignancy. A 1 year screening mammogram is recommended. Based on the Tyrer Cuzick model (a risk assessment model) the patient's lifetime risk is 7.5% and her 10 year risk is 3.9%. According to the ACR, ACS, and NCCN guidelines, an annual breast MRI exam along with mammogram is recommended if the patient's lifetime risk is 20% or greater. This exam was interpreted at Station ID: [id number]. NOTE: For mammograms, a report in lay terms will be sent to the patient. Approximately 15% of breast malignancies will not be visualized mammographically. In the management of a palpable breast mass, a negative mammogram must not discourage biopsy of a clinically suspicious lesion. Electronically Signed By: Prachi sam/joseph:06/01/2022 08:34:53 letter sent: Normal Exam ACR BI-RADS Category 1: Negative [id number]
== END ==
PROVIDERS: PCP Nurse Practitioner Family; Referring Provider Nurse Practitioner Family; Visit Provider Nurse Practitioner Family
DX: Z12.31 Encounter for screening mammogram for malignant neoplasm of breast (principal)
CPT/HCPCS: 77063; 77067

== ENCOUNTER → 2022-06-07 15:37 | Outpatient (CLI) | payer MEDICARE, SELFPAY ==
[2020-03-25 16:08] VITALS: BMI 29.9
--- NOTE | 2022-06-07 | DI.MRI.S_ITS ---
PROCEDURE: MR KNEE RT WO CON INDICATIONS: Effusion, right knee TECHNIQUE: Noncontrast sagittal PD fast spin echo and T2 fast spin echo with fat saturation, sagittal 3-D FLASH with fat saturation; coronal T1 spin echo and PD fast spin echo with fat saturation, and axial PD fast spin echo with fat saturation through the knee. COMPARISON: [facility], MR, MR KNEE LT WO CON, 10/24/2020, 17:11. FINDINGS: Image quality: Excellent. Menisci: There is a oblique tear involving the posterior horn of the patient's medial meniscus extending to the inferior joint surface. Lateral meniscus appears within normal limits. Cruciate ligaments: Patient is status post ACL reconstruction with a normal appearing ACL graft. PCL appears within normal limits. Medial structures: The medial collateral ligament appears intact. The posterior oblique ligament, semimembranosus tendon insertions, oblique popliteal ligament, and meniscocapsular junction appear intact. Visualized portions of the pes anserinus tendons appear normal. No abnormal bursal fluid. Lateral structures: The lateral collateral ligament, long and short heads of the biceps femoris tendon appear intact. The popliteus tendon appears normal; the popliteofibular ligament appears intact. The posterosuperior and anteroinferior popliteomeniscal fascicles appear intact. The arcuate and fabellofibular ligaments appear intact, on either side of the lateral inferior geniculate artery. Iliotibial band appears normal. Anterior structures: The quadriceps and patellar tendons appear intact. Patellar alignment is normal. No femoral trochlear dysplasia or ventral trochlear prominence. No edema in the infrapatellar fat pad. Bones and cartilage: There is moderate to severe chondromalacia involving the patellofemoral joint and articular surface of the medial compartment. Remainder of the articular cartilage appears intact. There is some reactive marrow edema secondary to the degenerative change involving the medial femoral condyle and medial tibial plateau. Joint space: There is a moderate to large size knee joint effusion present. No Frausto's cyst. Normal appearing synovial plicae are incidentally noted. IMPRESSION: 1. Status post ACL reconstruction with a normal appearing ACL graft. 2. Oblique tear involving the posterior horn of the patient's medial meniscus extending to the inferior joint surface. There also appears to be meniscal truncation present suggesting a longstanding tear with meniscal remodeling. 3. 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 4. Moderate to large size knee joint effusion. Dictated by: Shadi Dyer M.D. on 06/07/2022 at 17:15 Approved by: Shadi Dyer M.D. on 06/07/2022 at 17:22
== END ==
PROVIDERS: PCP Nurse Practitioner Family; Referring Provider Orthopaedic Surgery; Visit Provider Orthopaedic Surgery
DX: S83.241A Other tear of medial meniscus, current injury, right knee, initial encounter (principal); M22.41 Chondromalacia patellae, right knee; M25.461 Effusion, right knee
CPT/HCPCS: 73721

== ENCOUNTER → 2024-06-22 15:12 | Outpatient (CLI) | payer MEDICARE, SELFPAY ==
[2020-03-25 16:08] VITALS: BMI 29.9
--- NOTE | 2024-06-22 15:16 | DI.CT.S_ITS ---
PROCEDURE: CT SINUS SCREEN WO CON INDICATIONS: chronic pansinusitis TECHNIQUE: Noncontrast 3.0 mm axial images acquired from the frontal sinuses to the mid-sella, with coronal and sagittal reformats. For radiation dose reduction, the following was used: automated exposure control, adjustment of mA and/or kV according to patient size. COMPARISON: [facility], CT, CT SINUS SCREEN WO CON, 12/02/2018, 16:11. FINDINGS: Image quality: Excellent. Maxillary Sinuses: There is moderate mucosal thickening within the inferior right maxillary sinus. The superior medial burden of the maxillary sinuses have been removed. Ethmoid Air Cells: No bony remodeling or destruction. Portions of the ethmoid bony septations have been removed. Sphenoid Sinuses: No bony remodeling or destruction. Sinuses are clear. Frontal Sinuses: No bony remodeling or destruction. Sinuses are clear. Ostiomeatal Complexes: Prior bilateral antrectomy. Miscellaneous: Visualized intra-orbital contents are normal. 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 There is minimal rightward nasal septal deviation. A benign-appearing osteoma can be seen along the outer table of the right temporal region, as on series 2, image 37. IMPRESSION: Prior postoperative changes are seen, with bilateral antrectomy. Focal moderate mucosal thickening within the inferior right maxillary sinus. Dictated by: Hubert Adair M.D. on 06/22/2024 at 14:54 Approved by: Hubert Adair M.D. on 06/22/2024 at 14:56
== END ==
PROVIDERS: PCP Family Medicine; Referring Provider Family Medicine; Visit Provider Family Medicine
DX: J32.4 Chronic pansinusitis (principal); R09.81 Nasal congestion
CPT/HCPCS: 70486